=== PATIENT | male | born 1970 | race Caucasian/White ===

== ENCOUNTER 2018-12-29 11:33 | Day surgery (SDC) | payer MEDICAID ==
--- NOTE | 2018-12-29 07:08 | History and Physical - Ferro ---
CHIEF COMPLAINT/HISTORY OF CHIEF COMPLAINT: This patient presents with a history of an intractable post lumbar laminectomy radiculopathy., Due to the failure of therapies and the failure of a laminectomy stimulator, he is here for an implanted spinal catheter infusion trial of Hydromorphone to determine if the implantation of a permanent system can be of any value in pain control. PAST MEDICAL HISTORY: Hypertension, sleep apnea, and asthmatic bronchitis. PAST SURGICAL HISTORY: Achilles tendon repair, clavicle surgery, and spinal cord stimulator laminectomy lead. MEDICATIONS ON ADMISSION: List to be provided. ALLERGIES: None listed. FAMILY/PSYCHOSOCIAL HISTORY: Social history - Smoking, social alcohol and caffeine. Family history - Asthma, diabetes, coronary artery disease, hypertension and cancer. SYSTEMS REVIEW: The patient is appropriate in no acute distress. The remainder of the systems review is noncontributory. PHYSICAL EXAMINATION: Height is 6'4", weight is 300 pounds. No vital signs. HEENT: Within normal limits. LUNGS: Clear. HEART: Rapid and regular. ABDOMEN: Nontender. MUSCULOSKELETAL: Examination of the musculoskeletal system shows diffuse tenderness throughout the lumbar spine. Range of motion does produce pain into both legs across the front and back surface. There currently are no motor or sensory abnormalities. NEUROLOGIC: Cranial nerves are intact. No assistive device required for ambulation. IMPRESSION: POST LUMBAR LAMINECTOMY SYNDROME, ICD-10 CODE M96.1 WITH RADICULOPATHY, ICD-10 CODE M54.16 AND M54.17. PLAN: The patient is here for an implanted spinal catheter infusion trial of Hydromorphone to determine if the implantation of a permanent system can be of any value in pain control. The procedure will be considered an outpatient stay although an overnight stay will be evaluated. Epidural blood patch will be performed as a prophylactic measure to prevent spinal headache. The patient understands he will be flat for four hours and slowly elevated for one. This may require him staying overnight for observation, but again an outpatient procedure will be considered. JOB NUMBER: [id number] [facility]
[~2018-12-29 11:33] MED LIST: ACETAMINOPHEN 1,000 MG/100 ML BTL IV ONE; CEFAZOLIN 1 Gram 1 GM/50 ML BAG IVPB ONE; CEFAZOLIN 2 Gram 2 GM/50 ML BAG IVPB ONE; FAMOTIDINE 20MG TABLET PO ONE; HYDROMORPHONE PF 2MG/ML AMP 0.008 MG in 0.9 % SODIUM CHLORIDE 10ML VIA 0.996 ML IV ONE; HYDROMORPHONE PF 2MG/ML AMP 8 MG in 0.9 % SODIUM CHLORIDE 500ML 496 ML IV ONE; METOCLOPRAMIDE 10 MG TABLET PO ONE
[2018-12-29] MEDS ORDERED: PROPOFOL 10 MG/ML VIAL IV ONE (11:34)
[2018-12-29] MEDS ORDERED: MECLIZINE 25 MG TABLET PO ONE ×2 (11:34→12:47)
[2018-12-29] MEDS ORDERED: LIDOCAINE 2% MDV (20MG/ML) 20ML VIAL IV ONE (11:34)
[2018-12-29] MEDS ORDERED: MIDAZOLAM HCL 2MG/2ML VIAL IV ONE (11:34)
[2018-12-29] MEDS ORDERED: KETAMINE HCL 100MG/1ML VIAL INJ ONE (11:34)
[2018-12-29] MEDS ORDERED: FENTANYL PF 100MCG/2ML VIAL IV ONE (11:34)
[2018-12-29] MEDS ORDERED: BUPIVACAINE 0.5% W/EPI MPF 30 ML VIAL SQ ONE (14:22)
[2018-12-29] MEDS ORDERED: LIDOCAINE 1% W/EPI 1:100,000 MDV 20 ML VIAL SQ ONE (14:22)
[2018-12-29] MEDS ORDERED: RINGERS SOLUTION,LACTATED 1,000 ML IV ONE (15:26)
[2018-12-29] MEDS ORDERED: OXYCODONE/APAP 10MG-325MG TABLET PO PRN ×2 (16:00)
[2018-12-29] MEDS ORDERED: AL HYDROX/MAG HYDROX 30ML UD PO PRN (16:00)
[2018-12-29] MEDS ORDERED: NALOXONE 0.4 MG/1 ML VIAL IVP PRN (16:00)
[2018-12-29] MEDS ORDERED: ACETAMINOPHEN 325 MG TAB PO PRN ×2 (16:00)
[2018-12-29] MEDS ORDERED: DIPHENHYDRAMINE HCL 25 MG CAPSULE PO PRN ×2 (16:00)
[2018-12-29] MEDS ORDERED: HYDROCODONE/APAP 7.5/325MG TABLET PO PRN ×2 (16:00)
[2018-12-29] MEDS ORDERED: TEMAZEPAM 15 MG CAPSULE PO PRN ×2 (16:00)
[2018-12-29] MEDS ORDERED: DIPHENHYDRAMINE HCL 50 MG/ML VIAL IVP PRN ×2 (16:00)
[2018-12-29] MEDS ORDERED: METOCLOPRAMIDE 10 MG TABLET PO PRN (16:00)
[2018-12-29] MEDS ORDERED: SENNOSIDES/DOCUSATE SODIUM UD CAPSULE PO PRN ×2 (16:00)
[2018-12-29] MEDS ORDERED: RINGERS SOLUTION,LACTATED 1,000 ML IV SCH (16:00)
[2018-12-29] MEDS ORDERED: METOCLOPRAMIDE HCL 10 MG/2 ML VIAL IVP PRN (16:00)
[2018-12-29] MEDS ORDERED: HYDROMORPHONE HCL 2 MG/ML VIAL IM PRN ×2 (16:00)
[2018-12-29] MEDS ORDERED: CEFAZOLIN 2 Gram 2 GM/50 ML BAG IVPB SCH (22:00)
--- NOTE | 2018-12-30 17:50 | Operative Note ---
DATE OF SERVICE: 12/29/2018. DATE OF SURGERY: 12/29/2018. PREOPERATIVE DIAGNOSES: 1. Post lumbar laminectomy syndrome, ICD-10 Code M96.1, with laminectomy placed spinal cord stimulator. 2. Intractable lumbar radiculopathy, ICD-10 Code M54.16 and M54.17. SURGERY: 1. Fluoroscopic-guided placement of spinal catheter at L3-4, placement of thin wall catheter tip T11-12. 2. Diagnostic myelography. 3. Radiologic supervision and interpretation. 4. Bolus hydromorphone spinal space 0.0065 mg. 5. Incision, subsection, dissection, and anchoring spinal catheter, supraspinous fascia with an anchoring device and nonabsorbable suture. 6. Incision, subcutaneous dissection, and creation of subcutaneous pouch, left flank, ultimately for placement of pump, formation of subcutaneous pouch. 7. Tunneling between midline spinal catheter pouch into left flank pouch, extending spinal catheter into flank pouch, interface spinal catheter with 2nd catheter component by way of connector. 8. Tunneling secondary catheter component 6 cm superior from pouch, exiting skin, interface external catheter to external pump, set to deliver hydromorphone at 0.12 mg a day. 9. Closure of midline spinal catheter incision, Stratafix suture 2-0 fascia, running nylon skin, closure of left posterior flank pouch with running nylon. 10. Epidural blood patch, 20 mL autologous blood drawn sterile technique left antecubital. Epidural access at L4-5, 17 gauge, 6 inch Tuohy, loss of resistance. Epidural blood patch performed at this level with this blood. 11. Placement of dressings, securing external catheter to back using 4 x 4's and Medipore tape. Catheter, all connections under sterile dressing. Patient transported to recovery room stable. Pillow under head and knees. No unusual side effects. No spinal headache. Full functionality, extremities. There was CSF noted through the catheter at all points during the procedure. The diagnostic myelogram was without incident. Patient was stable. He will be kept flat for 4 hours, slowly elevated for 1, and then be considered either overnight stay or dischargeable to home. SURGEON: Josh Qiu DO. ANESTHESIA: Local sedation. ANESTHESIA PROVIDER: ARI. INDICATIONS: This patient presents with a history of intractable lumbar radiculopathy. A laminectomy flat plate stimulator had been placed, which contributed to his pain pattern and did not help. His pattern of pain is low back and bilateral lower extremities. Due to the failure of all therapies, he is here for an implant of spinal catheter and trial infusion hydromorphone to determine if the implantation of a permanent system can be of any value in pain control. SURGERY: Intravenous line, vital signs monitoring, IV sedation, patient position prone, sterile prep, sterile technique. The spinal interspace at L3-4 is marked on the skin. Sterile prep, sterile technique. Under imaging, a 20 gauge spinal needle 6 inch curved with the bevel running with the long axis and a paramedial approach using AP and lateral imaging was placed into the spinal space at 3-4. The lateral image was used to walk the needle into the spinal space with CSF flow. A thin-walled spinal catheter was advanced to T11-12. CSF flow noted through the catheter. Diagnostic myelography was performed. The flow characteristics were appropriate for the space. No unusual response on the part of the patient. No pain noted. A bolus of hydromorphone 0.0065 mg was given into the spinal space through the catheter. CSF flow still noted. Catheter was clamped to stop CSF leak. Skin above and below the needle infiltrated, incision made, and subcutaneous dissection was conducted to supraspinous fascia. The needle was removed, and the catheter was anchored to supraspinous fascia with a RTF [employer] anchor and nonabsorbable suture. At the left flank, at a site picked by the patient for the pump, skin infiltrated, incision made, and subcutaneous dissection was conducted to form a small pouch. A tunneling tool was then used to carry the spinal catheter into the pouch, and then the spinal catheter was interfaced with 2nd catheter component by way of a connector. The 2nd catheter component was tunneled 6 cm superior and exited the skin. Second catheter component was interfaced with external pump, which was set to deliver hydromorphone at 0.12 mg a day. The left flank pouch was closed with a running nylon. The midline spinal catheter pouch was closed with 2-0 Stratafix for fascia and a running nylon for skin. At L4-5, which was 1 level below the dural puncture, skin infiltrated and a 17 gauge, 6 inch Tuohy needle, loss of resistance, into the epidural space. Simultaneously, 20 mL autologous blood drawn, sterile technique, from the left antecubital. This blood was placed onto the field. Then an epidural blood patch was performed at this level. The needle was removed. Dressing was placed over the incisional sites and securing the catheter, all connections under the sterile dressing. He was then transported to the recovery room flat, pillow under head and knee. Stable. No side effects from the procedure. Full functionality of the extremities. No unusual pain. He will be kept flat for 4, slowly elevated for 1, and then be considered either a discharge to home or an overnight stay. DISCHARGE INSTRUCTIONS: 1. Site should remain clean and dry. No showering or bathing in any way that would disrupt dressings. If it happens, contact the clinic. 2. Standard medications given, including the antibiotic Levaquin. He will take 500 mg a day for 2 days. 3. The trial will run 14 days, 2 weeks. During this time, we will schedule 3 increases in the office. At the end of the trial period, he will either be implanted with a permanent system or the implanted catheter removed. All instructions provided and numbers to contact for problems given. Spinal opioid side effects, respiratory depression, nausea, vomiting, constipation, urinary retention, lightheadedness, or rash have all been discussed and reviewed. He has been shown, along with his , how to turn off the device. He was then prepared for discharge. CC: Choco Avila, DO SOL[facility]
--- NOTE | 2019-01-01 18:49 | RADIOLOGY REPORT ---
EXAM: SPINE, 1 VIEW HISTORY: PAIN PUMP TRIAL. TECHNIQUE: Single view of the thoracolumbar spine. COMPARISON: None. FINDINGS: A small electrode superimposes the T8 vertebral body. Please refer to the operative report for additional details. IMPRESSION: ABOVE. JOB NUMBER: [id number] [facility]
== END 2018-12-29 20:30 | disposition home or self-care (01) ==
LOC: SUR 11:33 → MEDSURG 16:11 → SUR 20:30
PROVIDERS: ATTEND Pain Medicine Interventional Pain Medicine
DX: M96.1 Postlaminectomy syndrome, not elsewhere classified (principal); M54.16 Radiculopathy, lumbar region; M54.17 Radiculopathy, lumbosacral region; I10 Essential (primary) hypertension; G47.33 Obstructive sleep apnea (adult) (pediatric); E11.9 Type 2 diabetes mellitus without complications; E66.8 Other obesity
CPT/HCPCS: 62350; 62362; 62273; 00630; 72020; 93005; Q9967; J3010; J0690 ×2; J1170; J3490; J7040; J7120

== ENCOUNTER 2019-01-12 08:20 | Day surgery (SDC) | payer MEDICAID ==
[~2019-01-12 08:20] MED LIST changes: -ACETAMINOPHEN 1,000 MG/100 ML BTL IV ONE; -CEFAZOLIN 1 Gram 1 GM/50 ML BAG IVPB ONE; -CEFAZOLIN 2 Gram 2 GM/50 ML BAG IVPB ONE; -FAMOTIDINE 20MG TABLET PO ONE; +HYDROMORPHONE HCL 0.06 GM in 0.9 % SODIUM CHLORIDE 10ML VIA 20 ML IV ONE; -HYDROMORPHONE PF 2MG/ML AMP 8 MG in 0.9 % SODIUM CHLORIDE 500ML 496 ML IV ONE; -METOCLOPRAMIDE 10 MG TABLET PO ONE
[2019-01-12] MEDS ORDERED: FENTANYL PF 100MCG/2ML VIAL IV ONE (08:21)
[2019-01-12] MEDS ORDERED: DEXMEDETOMIDINE HCL 200 MCG/2 ML VIAL IV ONE (08:21)
[2019-01-12] MEDS ORDERED: MIDAZOLAM HCL 2MG/2ML VIAL IV ONE (08:21)
[2019-01-12] MEDS ORDERED: KETAMINE HCL 100MG/1ML VIAL INJ ONE (08:21)
[2019-01-12] MEDS ORDERED: LIDOCAINE 2% MDV (20MG/ML) 20ML VIAL IV ONE (08:21)
[2019-01-12] MEDS ORDERED: PROPOFOL 10 MG/ML VIAL IV ONE (08:21)
--- NOTE | 2019-01-12 08:38 | History and Physical - Ferro ---
CHIEF COMPLAINT/HISTORY OF CHIEF COMPLAINT: This patient presents with a history of intractable lumbar radiculopathy. Due to the failure of all therapy an implanted spinal catheter infusion trial of Hydromorphone has been ongoing. He has achieved 75+% pain control and wants to move on to a permanent system. PAST MEDICAL HISTORY: Unchanged. PAST SURGICAL HISTORY: Unchanged. MEDICATIONS ON ADMISSION: Unchanged. ALLERGIES: None listed. FAMILY/PSYCHOSOCIAL HISTORY: Social history - Unchanged. Family history - Unchanged. SYSTEMS REVIEW: The patient seems appropriate in no acute distress. PHYSICAL EXAMINATION: Height is 6'4", weight is 300 pounds. No vital signs. HEENT: Within normal limits. LUNGS: Clear. HEART: Rapid and regular. ABDOMEN: Nontender. MUSCULOSKELETAL: Examination of the musculoskeletal system shows the dressings for the implanted catheter trial to be intact. The external pump is currently infusing appropriately. Underlying pain pattern is a post lumbar laminectomy radiculopathy pain across the back, hip and legs noted. NEUROLOGIC: Cranial nerves are intact. IMPRESSION: 1. POST LUMBAR LAMINECTOMY SYNDROME, ICD-10 CODE M96.1 WITH RADICULOPATHY, ICD- 10 CODE M54.16 AND M54.17. 2. IMPLANTED SPINAL CATHETER INFUSION TRIAL OF HYDROMORPHONE. PLAN: With success of the trial, the patient is here for implantation of a permanent system. We will remove all of the external components and place pump subcutaneously interfacing it to the existing catheter. The potential risks, side effects and complications have all been reviewed and discussed. The procedure will be considered outpatient. JOB NUMBER: [id number] [facility]
[2019-01-12] MEDS ORDERED: RINGERS SOLUTION,LACTATED 1,000 ML IV ONE ×2 (09:30→11:13)
[2019-01-12] MEDS ORDERED: METOCLOPRAMIDE 10 MG TABLET PO ONE (09:39)
[2019-01-12] MEDS ORDERED: FAMOTIDINE 20MG TABLET PO ONE (09:39)
[2019-01-12] MEDS ORDERED: ACETAMINOPHEN 1,000 MG/100 ML BTL IVPB ONE (09:40)
[2019-01-12] MEDS ORDERED: MECLIZINE 25 MG TABLET PO ONE (09:40)
[2019-01-12] MEDS ORDERED: CEFAZOLIN 1G VIAL IVP ONE (09:40)
[2019-01-12] MEDS ORDERED: LIDOCAINE 1% W/EPI 1:200,000 MPF 30ML SQ ONE ×2 (11:12)
[2019-01-12] MEDS ORDERED: BUPIVACAINE 0.5% W/EPI MPF 30 ML VIAL SQ ONE ×2 (11:12)
[2019-01-12] MEDS ORDERED: CEFAZOLIN 0.5 G in 0.9 % SODIUM CHLORIDE 1000ML 500 ML IVP ONE (11:21)
--- NOTE | 2019-01-14 08:50 | Operative Note ---
DATE OF SURGERY: 01/12/2019 PREOPERATIVE DIAGNOSES: 1. Post lumbar laminectomy syndrome, ICD10 code M96.1, with radiculopathy, ICD10 code M54.16 and M54.17. 2. Implanted spinal catheter infusion hydromorphone. OPERATION: 1. Incision, subcutaneous dissection, and removal of external spinal catheter. 2. Incision, subcutaneous dissection, and revision of internal catheter with secondary catheter component. Interfaced to new catheter with connector. 3. Incision, subcutaneous dissection, and creation of subcutaneous pouch at left flank for placement of pump, Medtronic 20 mL programmable, prefilled hydromorphone 3 mg/mL. 4. Placement of pump onto field interfaced with revised catheter. 5. Placement of revised catheter into formed pouch at left flank securing to posterior fascia with nonabsorbable suture with 3-point pump eyelets. 6. Placement of curved 24-gauge Carrington needle to access port of programmable pump aspiration and clearing catheter of opioid and CSF mixture. 7. Diagnostic myelography with radiologic supervision and interpretation using access port. 8. Closure of incision using Stratafix suture 2-0 fascia 3-0 skin Dermabond closure. 9. Programming of pump to delivery hydromorphone continuous infusion 0.5 mg a day. SURGEON: Josh Qiu, ANESTHESIA: Local with sedation. ANESTHESIA PROVIDER: Kyle Argueta INDICATIONS: This is a patient with a history of an intractable post lumbar laminectomy radiculopathy. An implanted spinal catheter infusion trial of hydromorphone is ongoing. Due to the failure of therapies and the success of the trial, he is here for permanent implantation. PROCEDURE: Intravenous line, vital sign monitoring, IV sedation. Prepped and draped with sterile technique. Patient positioned on the table prone. Sterile prep, sterile technique. During the sterile prep, a wood tick was identified buried deep in the patient's skin approximating his left scapula. He was still somewhat awake at that time. He was questioned. He had no idea. Using a sterile technique, the tick was pulled meticulously as possible from the skin. It was unknown as to whether or not the head of the tick had come with the body of the tick. A sterile prep over the area was performed. The area was marked, dressing placed. The prep was then continued. Drapes were applied. He was sedated by Anesthesia. Anesthesia provider Kyle Argueta. Under imaging, the externalized components were removed. Dressing removed. The catheter was clamped. The external pump removed. At the left flank, an incision interfacing internal and external catheter was identified, marked, infiltrated with local. An incision made and subcutaneous dissection was conducted at this site to form a pouch of suitable size and depth for the pump, a Medtronic 20 mL programmable. Once the pouch was formed, the connection between the internal and external catheter was identified, clamped. The external catheter was cut deep within the incision and then pulled away from the wound. The internal catheter was then revised and resected with a catheter component and a new second catheter component which would interface to the pump. A 20 mL programmable Medtronic was then placed onto the field, prefilled hydromorphone 3 mL/mg. The revised catheter was interfaced to the new pump. Antibiotic irrigation. Bovie for hemostasis in the pouch. The pump was then placed into the pouch and secured to the posterior fascia with 3-point pump eyelets using nonabsorbable suture. With the pump in the pouch, a curved 24-gauge Carrington needle was inserted into the access port and 1 mL of catheter contents was aspirated clearing the catheter of opioid and CSF mixture. Diagnostic myelography was then performed with radiologic supervision and interpretation injecting contrast throughout the access port. Contrast moved through the internal components of the pump, moved through the pump-catheter connection, and into the spinal space. Smooth linear flow of contrast was identified tip of the catheter T11-12. With this confirmation of functionality and appropriate placement, the incision was then closed using Stratafix suture 2-0 fascia 3-0 skin Dermabond closure. The pump was then programmed to deliver by continuous infusion hydromorphone at 0.5 mg a day. He was then trial dosed 0.35 mg a day. He was transported to recovery room stable. There were no side effects from the procedure or sedation. When fully awake and alert, he was prepared for discharge by his instructions. DISCHARGE INSTRUCTIONS: 1. The sites will remain clean and dry. No showering or bathing in any way although the Dermabond will allow showering. He should not sit in water. 2. Standard medications resumed. He will continue the Levaquin 500 mg once a day for 7 more days. 3. The office will contact the patient in 12-24 hours to set up a time in the next 7-10 days to evaluate his sites. Until then, he is to keep his activities low. Limit bend, lift, push, pull. Keep the dressing intact. He can trim the edges but not remove the dressing. All the other instructions provided. Respiratory side effects, nausea, vomiting, constipation, urinary retention, lightheadedness, or rash from spinal opioids have been reviewed again. He was then discharged. CC: PCP OSMIN
--- NOTE | 2019-01-14 15:02 | RADIOLOGY REPORT ---
EXAM: THORACOLUMBAR SPINE HISTORY: PAIN CATHETER IMPLANT. TECHNIQUE: A single frontal view of the thoracolumbar spine was obtained. Comparison: Spine radiograph 12/28/18. FINDINGS: A pump device is now seen superimposing the left abdomen with a thin radiolucent catheter extending superiorly over the spine with the tip marker superimposing the T11-T12 interbody space. Partially seen stimulator device wires with lead tip near the T8 vertebral body. Please see operative report for additional details. IMPRESSION: ABOVE. J[facility]BER: [id number] [facility]
== END 2019-01-12 12:39 | disposition home or self-care (01) ==
LOC: SUR 08:20
PROVIDERS: ATTEND Pain Medicine Interventional Pain Medicine
DX: M96.1 Postlaminectomy syndrome, not elsewhere classified (principal); M54.16 Radiculopathy, lumbar region; M54.17 Radiculopathy, lumbosacral region; I10 Essential (primary) hypertension; E11.9 Type 2 diabetes mellitus without complications; E66.01 Morbid (severe) obesity due to excess calories; S20.462A Insect bite (nonvenomous) of left back wall of thorax, initial encounter
CPT/HCPCS: 62350; 62362; 01936; 62367; 72020; Q9967; J3010; J3490 ×2; J1170; C1755; C1776; J0690; J7030; J7120